=== PATIENT | male | born 2005 | race Caucasian/White ===

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

== ENCOUNTER 2024-06-25 23:57 | Emergency (ER) | payer BC, MEDICAID ==
[~2024-06-25] VITALS: Ht 167.6 cm; Wt 58.0 kg
[2024-06-26] MEDS: ondansetron 4mg rapidly disintigrating tab PO ONE ×2 (00:50→01:12)
[2024-06-26] MEDS ORDERED: ONDA-245 PO (01:05)
[2024-06-26] MEDS: diphenhydrAMINE 25mg capsule PO ONE (01:36)
[2024-06-26] MEDS: proCHLORperazine 10mg tablet PO ONE (01:36)
[2024-06-26 01:40] VITALS: BP 125/72; PULSE 90; RESP 16; TEMP 98.6; O2SAT 99
== END 2024-06-26 01:41 | disposition home or self-care (01) ==
LOC: ER 23:57
DX: K29.00 Acute gastritis without bleeding (principal)
CPT/HCPCS: 99284; Q0163; Q0164